=== PATIENT | male | born 1990 | race Caucasian/White ===

== ENCOUNTER 2025-05-09 07:37 | Emergency (ER) | payer OTHER ==
[~2025-05-09] VITALS: Ht 172.7 cm; Wt 131.5 kg
[2025-05-09] MEDS ORDERED: NS 1,000 ML IV SCH ×2 (08:00→13:45)
[2025-05-09 08:13] LABS: BASOPHILS ABSOLUTE AUTO 0.02 K/mm3 (0.00-0.23); BASOPHILS PERCENT AUTO 0 % (0-2); EOSINOPHILS ABSOLUTE AUTO 0.02 K/mm3 (0.00-0.68); EOSINOPHILS PERCENT AUTO 0 % (0-6); Hematocrit 47.1 % (37.0-53.0); Hemoglobin 16.5 g/dL (13.5-17.5); IMMATURE GRAN ABSOLUTE AUTO 0.01 K/mm3 (0.00-0.10); IMMATURE GRAN PERCENT AUTO 0 % (0-1); LYMPHOCYTES ABSOLUTE AUTO 1.60 K/mm3 (0.84-5.20); LYMPHOCYTES PERCENT AUTO 23 % (21-46); MONOCYTES ABSOLUTE AUTO 0.46 K/mm3 (0.16-1.47); MONOCYTES PERCENT AUTO 7 % (4-13); Mean Corpuscular HGB Conc 35.0 g/dL (31.5-36.5); Mean Corpuscular Volume 88 fL (80-100); NEUTROPHILS ABSOLUTE AUTO 4.72 K/mm3 (1.96-9.15); NEUTROPHILS PERCENT AUTO 69 % (41-73); NRBC ABSOLUTE 0.00 K/mm3 (0.00-0.02); NRBC Auto 0.0 /100 WBC (0.0-0.2); Platelet Count 245 K/mm3 (150-400); RDW Coefficient Variation 12.7 % (11.7-14.2); RDW Standard Deviation 41.2 fL (35.1-46.3)
[2025-05-09 08:30] LABS: Alanine Aminotransfer (ALT/SGP 801.0 U/L (12-78); Albumin, Blood 3.7 g/dL (3.4-5.0); Albumin/Globulin Ratio 0.8 (0.8-1.8); Anion Gap 9.0 mmol/L (3-11); Aspartate Aminotrans (AST/SGOT 706.0 U/L (12-37); Bilirubin, Total 5.6 mg/dL (0.1-1.0); Blood Urea Nitrogen 11.0 mg/dL (8-24); CO2, Blood 26.0 mmol/L (21-32); Calcium, Blood 9.4 mg/dL (8.5-10.1); Chloride, Blood 104.0 mmol/L (98-108); Creatinine, Blood 1.01 mg/dL (0.60-1.20); Globulin, Blood 4.7 g/dL (2.2-4.0); Glucose, Blood 125.0 mg/dL (70-99); Potassium, Blood 3.2 mmol/L (3.5-5.5); Sodium, Blood 136.0 mmol/L (136-145); Total Protein, Blood 8.4 g/dL (6.4-8.2)
[2025-05-09] MEDS ORDERED: HYDROmorphone HCl/Pf 1MG SYR IV ONE ×3 (08:45→13:30)
[2025-05-09] MEDS ORDERED: Ondansetron HCl 2 MG / ML 2ML Vial IV ONE (08:45)
[2025-05-09] MEDS ORDERED: Ampicillin Sod/Sulbactam Sod 3 GM in NS 100 ML IV ONE (10:25)
[2025-05-09 11:17] LABS: Source, Urine Clean Catch
[2025-05-09 11:38] LABS: Color, Urine Amber (P-Yellow); Glucose Qualitative, Urine Neg (Neg); Ketones, Urine 3+ (Neg); Leukocyte Esterase, Urine 1+ (Neg); Protein, Urine 2+ (Neg); Specific Gravity, Urine 1.015 (1.003-1.022); Urobilinogen, Urine 4+ (Normal)
[2025-05-09 11:54] LABS: Bilirubin, Urine 2+ (Neg)
[2025-05-09 11:56] LABS: Red Blood Cells, Urine 0-2 /hpf (0-2)
== END 2025-05-09 16:42 | disposition short-term general hospital (02) ==
LOC: ER 07:37
PROVIDERS: Emergency Medicine
DX: K80.62 Calculus of gallbladder and bile duct with acute cholecystitis without obstruction (principal)
CPT/HCPCS: 74181; 76705; 80053; 81001; 83690; 85025; 87086; 96361; 96365; 96375; 96376; 99285-25; J0295; J1171; J2405; J7030